=== PATIENT | female | born 1950 | race Caucasian/White ===

== ENCOUNTER 2017-01-02 00:41 | Outpatient (CLI) | payer MEDICARE ==
[2017-01-01 23:46] LABS: BASOPHILS 0.2 % (0.0-2.0); EOSINOPHILS 2.1 % (0-7); HEMATOCRIT 42.9 % (36.0-48.0); HEMOGLOBIN 14.7 g/dL (12-16); IMMATURE GRANULOCYTES 0.5 % (0-5); LYMPHOCYTES 31.2 % (15-50); MCH 30.3 pg (26.0-34.0); MCHC 34.3 g/dL (31.0-37.0); MCV 88.5 fL (80.0-100.0); MEAN PLATELET VOLUME 9.5 fL (7.4-10.4); MONOCYTES 7.4 % (2-11); NEUTROPHILS 58.6 % (40-80); PLATELET COUNT 203 10x3/uL (130-400); RBC 4.85 10x6/uL (4.00-5.40); RDW 12.5 % (11.5-14.5); WBC 5.7 10x3/uL (4.8-10.8)
[2017-01-01 23:59] LABS: ALBUMIN 3.8 g/dL (3.4-5.0); ALKALINE PHOSPHATASE 73 U/L (46-116); ALT (SGPT) 35 U/L (10-68); BILIRUBIN - TOTAL 0.38 mg/dL (0.2-1.3); CALC OSMOLALITY 284 mosm/kg (275-300); CALCIUM 9.9 mg/dL (8.5-10.1); CHLORIDE - SERUM 104 mmol/L (98-107); CREATININE - SERUM 1.1 mg/dL (0.6-1.3); POTASSIUM - SERUM 3.8 mmol/L (3.5-5.1); PROTEIN - SERUM 7.5 g/dL (6.4-8.2); SODIUM 141 mmol/L (136-145); UREA NITROGEN 19 mg/dL (7-18); eGFR NON AFRICAN AMERICAN 53 mL/min (90-120)
[2017-01-02] LABS: GLUCOSE 127 mg/dL (74-106)
--- NOTE | ~2017-01-02 | HEMODYNAMI ---
PATIENT:JAVON HAINES MEDICAL RECORD: [id number] : 50 LOCATION:D. D.[address] [facility]# [id number] ADMISSION DATE: 01/02/17 Generatedon:01/02/201712:49 Patient name: JAVON HAINES Patient #: [id number] SSN: [id number] : 1950 Date of study: 01/02/2017 Page: Of Hemodynamic Procedure Report Patient Data Patient Demographics Procedure consent was obtained First Name: JAVON Gender: Female Last Name: ZAKI : 1950 [facility] Initial: A Age: 66 year(s) Patient #: [id number] Race: SSN: [id number] Additional ID: [id number] Contact details [address]: [address] [place] [address] State: [place] City: [place] Zip code: [address] Past Medical History History of disease Date Diagnosis Comments CAD Valvular heart disease Previous [place] Hypertension Diabetes Allergies Allergen Reaction Date Comments Reported Heparin agents 05/02/2015 Other allergy 05/02/2015 Statins, Lisinopril, Macrobid Other allergy 09/23/2016 Heparin, analogues, Lisinopril, Nitrofurantoin, Statins Admission Admission Data Admission Date: 01/02/2017 Admission Time: 0:41 Admit Source: Other Room #: D.2119 Lab Results Lab Result Date: 01/02/2017 Lab Result Time: 0:00 Biochemistry Name Units Result Min Max Creatinine mg/dl 1.1 --(--*-)-- 0.6 1.3 CBC Name Units Result Min Max Hemoglobin g/dl 14.7 --(-*--)-- 13.5 17.5 Procedure Procedure Types Cath Procedure Diagnostic Procedure [facility] w/Coronaries w/Grafts FFR/IVUS Intra-Coronary IVUS Initial PCI Procedure Coronary Stent Initial Procedure Description Procedure Date Procedure Date: 01/02/2017 Procedure Start Time: 12:15 Procedure End Time: 12:45 Procedure Staff Name Function Michell Frye RT Scrub Chuy Turner RT Dianetic Counselor Shannon Shay RN Nurse Joshua Hooker MD Performing Physician Earl Anguiano RT Monitor Arnaldo Mishra RT Monitor Procedure Data Cath Procedure Fluoroscopy Diagnostic fluoroscopy Total fluoroscopy Time: 6.8 time: 6.8 min min Diagnostic fluoroscopy Total fluoroscopy dose: 699 dose: 699 mGy mGy Contrast Material Contrast Material Type Amount (ml) Isovue 300 135 Entry Location Entry Primary Successful Side Size Upsize Upsize Entry Closure Succes sful Closure Location (Fr) 1 (Fr) 2 (Fr) Remarks Device Remarks Femoral Right 5 Fr 6 Fr Vascade artery Short Closure System Estimated blood loss: 10 ml Diagnostic catheters Device Type Used For End Catheter Placement Cordis 5Fr Pigtail Procedure Catheter (MP) Cordis 5Fr JL 4.0 Procedure Catheter (MP) Cordis 5Fr 3DRC Catheter Procedure (MP) Diagnostic Infinity 5Fr Procedure AR 2 MOD catheter Procedure Medications Medication Administration Route Dosage Oxygen NC 2 l/min Lidocaine 2% added to field 20 0.9% NaCl 1000 ml 0.9% NaCl 250 ml 0.9% NaCl 100 ml/hr Versed I.V. 1 mg Fentanyl I.V. 50 mcg Versed I.V. 1 mg Fentanyl I.V. 50 mcg Angiomax (bolus) I.V. 7.5 ml Plavix P.O. 75 mg Hemodynamics Rest HGB: 14.7 (g/dl) Heart Rate: 85 (bpm) Snapshots Pre Cath Intra NCS Post Cath Vital Signs Time Heart Resp SPO2 etCO2 WL1xogb NIBP (mmHg) Rhythm Pain Sedation Rate (ipm) (%) (mmHg) (mmHg) Status Level (bpm) 12:05:13 71 15 100 0 0 163/73(107) NSR 0 (11) 10(A) , No pain 12:09:36 74 18 99 0 0 144/61(101) NSR 0 (11) 10(A) , No pain 12:13:56 73 19 97 0 0 117/55(83) NSR 0 (11) 10(A) , No pain 12:18:10 72 18 93 0 0 106/48(74) NSR 0 (11) 9(A) , No pain 12:22:17 76 20 98 0 0 107/55(84) NSR 0 (11) 9(A) , No pain 12:26:23 73 19 99 0 0 120/59(89) NSR 0 (11) 9(A) , No pain 12:30:35 70 26 99 0 0 116/57(99) NSR 0 (11) 9(A) , No pain 12:34:45 64 21 100 0 0 107/59(86) NSR 0 (11) 9(A) , No pain 12:38:53 66 17 100 0 0 121/56(83) NSR 0 (11) 9(A) , No pain 12:43:03 63 7 99 0 0 126/60(75) NSR 0 (11) 9(A) , No pain Medications Time Medication Route Dose Verified Delivered Reason Notes Ef fectiveness by by 12:08:58 Oxygen NC 2 Joshua Buffie used for l/min Morro Shay RN procedure 12:09:05 0.9% NaCl on 1000 Joshua Joshua used for on field ml Morro Hooker MD procedure field, pt allergic to heparin 12:09:05 Lidocaine added 20ml Joshua Joshua for local 2% to vial Morro Hooker MD anesthetic field 12:09:34 0.9% NaCl on 250 Joshua Joshua used for on field ml Morro Hooker MD procedure field, pt allergic to heparin 12:09:44 0.9% NaCl on 100 Joshua Buffie Per physician field ml/hr Morro Shay RN 12:15:26 Versed I.V. 1 mg Joshua Buffie for sedation Morro Shay RN 12:15:34 Fentanyl I.V. 50 Joshua Buffie for sedation mcg Morro Shay RN 12:22:57 Versed I.V. 1 mg Joshua Buffie for sedation Morro Shay RN 12:23:01 Fentanyl I.V. 50 Joshua Buffie for sedation mcg Morro Shay RN 12:23:58 Angiomax I.V. 7.5 Joshua Buffie for verified (bolus) ml Morro Shay RN anticoagulation with dr hooker 12:40:40 Plavix P.O. 75 mg Joshua Buffie for Morro Shay RN antiplatelet therapy Procedure Log Time Note 11:45:55 Chuy Turner RT(R) sent for patient. Start room use. 11:52:17 Informed consent obtained and on chart 11:53:05 Admit Source: Other 11:55:02 Procedure type changed to Cath procedure, Diagnostic procedure, LHC, LHC w/Coronaries w/Grafts, FFR/IVUS, Intra-Coronary IVUS Initial, PCI procedure, Coronary Stent Initial 11:56:01 Time tracking: Regular hours 11:56:05 Plan of Care:Hemodynamics will remain stable., Cardiac rhythm will remain stable., Comfort level will be maintained., Respiratory function will remain adequate., Patient/ family verbilizes understanding of procedure., Procedure tolerated without complication., Recovers from procedure without complications.. 11:56:20 Patient received from PCU to CCL 1 Alert and oriented. Tansferred to table in Supine position. 12:04:06 Vital chart was started 12:06:20 ECG and BP/O2 sat monitors applied to patient. 12:06:23 Warm blankets applied, and gonzález hugger turned on for patient comfort. 12:06:27 Correct patient and procedure confirmed by team. 12:06:28 Baseline sample Acquired. 12:06:35 Rhythm: paced 12:06:37 Full Disclosure recording started 12:08:58 Oxygen 2 l/min NC was given by Shannon Shya RN; used for procedure; 12:09:05 0.9% NaCl 1000 ml on field was given by Joshua Hooker MD; used for procedure; on field, pt allergic to heparin 12:09:05 Lidocaine 2% 20ml vial added to field was given by Joshua Hooker MD; for local anesthetic; 12:09:34 0.9% NaCl 250 ml on field was given by Joshua Hooker MD; used for procedure; on field, pt allergic to heparin 12:09:44 0.9% NaCl 100 ml/hr on field was given by Shannon Shay RN; Per physician; 12:11:45 H&P Date Dictated: 01/02/2017 Within 30 days and on chart.. 12:11:46 Pre-op teaching completed and patient verbalized understanding. 12:11:46 Pre-procedure instructions explained to patient. 12:11:49 Family in waiting room. 12:12:33 Patient NPO since Midnight. 12:12:35 Is the patient allergic to Iodine/contrast media? No. 12:12:37 Is patient on blood thinner?Yes 12:12:41 ACC The patient was administered the following blood thiners within the last 24 hours: ACCPlavix 12:12:42 Patient diabetic? Yes. 12:12:43 If diabetic: On Metformin? No 12:12:47 Previous problem with sedation/anesthesia? No ? 12:12:48 Snore? Yes 12:12:50 Sleep apnea? No 12:12:51 Deviated septum? No 12:12:53 Opens mouth fully? Yes 12:12:54 Sticks out tongue? Yes 12:12:55 Airway obstruction? No ? 12:12:57 Dentures? No ? 12:12:59 Pre procedure: right dorsailis pedis pulse 1+ Palpable, but thready & weak; easily obliterated 12:13:01 Patient pain scale 0/10 ?. 12:13:04 IV patent on arrival in right forearm with 0.9% NaCl at [facility]. 12:13:27 Lab Result : Hemoglobin 14.7 g/dl 12:13:27 Lab Result : Creatinine 1.1 mg/dl 12:13:30 Lab results completed and on chart. 12:13:32 Right groin area was prepped with chlora-prep and draped in sterile fashion 12:13:33 Alarms reviewed by R. N. 12:13:41 Sharps counted by scrub and verified by R.N. 12:13:42 Physician arrived 12:13:43 Final Timeout: patient, procedure, and site verified with staff and physician. All members of the team are in agreement. 12:13:43 Final Timeout: patient, procedure, and site verified with staff and physician. All members of the team are in agreement. 12:13:43 --------ALL STOP TIME OUT------ 12:13:46 Right groin site verified by team. 12:13:49 Physical assessment completed. ASA score P 2 - A patient with mild systemic disease as per Joshua Hooker MD. 12:13:53 Sedation plan: IV Moderate Sedation Versed, Fentanyl 12:13:56 Use device set Femoral Dx 12:13:57 Tegaderm 4 x 4 opened to sterile field. 12:13:58 Acist Hand Control opened to sterile field. 12:13:58 Acist Manifold opened to sterile field. 12:14:00 Bag Decanter opened to sterile field. 12:14:00 Acist Syringe opened to sterile field. 12:14:01 Medline Cath Pack opened to sterile field. 12:14:02 St Mt 260cm J .035 wire opened to sterile field. 12:14:02 Terumo 5Fr [place] Sheath opened to sterile field. 12:14:03 Diagnostic Infinity 5Fr Multipack catheter opened to sterile field. 12:15:26 Versed 1 mg I.V. was given by Shannon Shay RN; for sedation; 12:15:34 Fentanyl 50 mcg I.V. was given by Shannon Shay RN; for sedation; 12:15:40 Local anesthetic to right femoral artery with Lidocaine 2% by Joshua Hooker MD.INITIAL ACCESS ONLY 12:15:40 Procedure started. 12:16:00 A Cordis 5Fr Pigtail Catheter (MP) was advanced over the wire and used for Procedure. 12:16:06 A 5 Fr sheath was inserted into the Right Femoral artery 12:16:07 Zero performed for pressure channel P1 12:16:09 Zero performed for pressure channel P1 12:16:34 LV gram done using GRULLON 12:16:36 Injector settings: Ml/sec: 10, Volume: 20, 12:16:43 EF : 55 % 12:16:46 Catheter exchanged over wire. 12:16:50 A Cordis 5Fr JL 4.0 Catheter (MP) was advanced over the wire and used for Procedure. 12:17:34 LCA angiography performed. 12:19:53 Catheter exchanged over wire. 12:20:00 A Cordis 5Fr 3DRC Catheter (MP) was advanced over the wire and used for Procedure. 12:20:08 MONROY to LAD angiography performed. 12:20:11 RCA angiography performed. 12:20:22 [place] BasixCompak Inflation Kit opened to sterile field. 12:20:23 Monroy Whisper J 300cm 0.014 guide wire opened to sterile field. 12:20:43 Merit BasixCompak Inflation Kit opened to sterile field. 12:20:44 Pompeii [facility] IVUS Catheter opened to sterile field. 12:21:04 Terumo 6Fr [place] Sheath opened to sterile field. 12:21:15 Catheter exchanged over wire. 12:21:18 A Diagnostic Infinity 5Fr AR 2 MOD catheter was advanced over the wire and used for Procedure. 12:21:27 Cordis 6FR XBLAD 3.5 guide catheter opened to sterile field. 12:22:15 SVG to RCA angiography performed. 12::57 Versed 1 mg I.V. was given by Shannon Shay RN; for sedation; 12:23:01 Fentanyl 50 mcg I.V. was given by Shannon Shay RN; for sedation; 12:23:17 SVG to Diag angiography performed. 12:23:31 SVG to OM angiography performed. 12:23:58 Angiomax (bolus) 7.5 ml I.V. was given by Shannon Shay RN; for anticoagulation; verified with dr hooker 12:24:15 Catheter removed. 12:24:19 Sheath upsized to a 6 Fr Short. 12:24:29 6 Fr xblad 3.5 guide catheter was inserted over the wire 12:24:32 whisper wire advanced. 12:24:38 Wire advanced across lesion. 12:24:41 IVUS catheter advanced over wire. 12:24:43 IVUS pass to Circ lesion performed. 12:28:37 IVUS catheter removed over wire. 12:30:40 Inflation Number: 1 A Pod Innstronic Resolute 2.5 X 14 stent was prepped and advanced across the Mid CX. The stent was deployed at 13 ABIOLA for 0:00 (min:sec). 12:30:49 Inflation number: 2 The stent balloon was then re-inflated across the Mid CX to 17 ABIOLA for 0:10 (min:sec). 12:31:14 Inflation number: 3 The stent balloon was then re-inflated across the Mid CX to 19 ABIOLA for 0:10 (min:sec). 12:31:40 ACC PCI Site: [facility] has 80% stenosis. 12:31:42 ACC Pre-intervention FAITH Flow is 3. 12:31:47 Stent catheter was removed intact over wire. 12:34:13 Inflation number: 4 A OpenROV Euphora 3.0 x 12 balloon was prepped and advanced across the Mid CX, then inflated to 15 ABIOLA for 0:10 (min:sec). 12:34:39 Balloon removed over the wire. 12:34:40 Wire removed. 12:34:41 Guide catheter removed. 12:35:53 Vascade 6/7 Fr Closure Device opened to sterile field. 12:36:32 Sheath removed intact; hemostasis achieved with Vascade Closure System to the Right Femoral artery. 12:36:37 Procedure ended.(Physican Out) 12:36:45 Fluoroscopy time 06.80 minutes. 12:37:02 Fluoroscopy dose: 699 mGy 12:37:02 Flurop Dose total: 699 12:37:22 Contrast amount:Isovue 300 135ml. 12:40:09 Insertion/operative site no bleeding no hematoma. 12:40:13 Post-op/insertion site Right Femoral artery dressed using a 4 x 4 and Tegaderm. 12:40:16 Post Procedure Pulses reassessed and unchanged 12:40:23 Post-procedure physical assessment completed. ASA score P 2 - A patient with mild systemic disease as per Joshua Hooker MD. 12:40:28 Post procedure rhythm: unchanged. 12:40:31 Procedure and supply charges have been captured, reviewed, submitted and are correct. 12:40:40 Plavix 75 mg P.O. was given by Shannon Shay RN; for antiplatelet therapy; 12:41:55 Estimated blood loss: 10 ml 12:42:00 Post procedure instruction explained to patient.Patient verbalizes understanding. 12:42:01 Patient needs reinforcement of post procedure teaching. 12:45:08 Vital chart was stopped 12:45:09 See physician's report for complete and final results. 12:45:11 Report given to PCU. 12:45:16 Patient transfered to PCU with Bed. 12:45:25 Full Disclosure recording stopped 12:45:25 Procedure ended. 12:45:40 ACC-PCI Only Patient was given prescriptions, or instructed by Joshua Hooker MD to start/continue the following medications upon discharge: Aspirin, Plavix 12:45:43 End room use (Document Last) Intervention Summary Intervention Notes Time ActionType Lesion and Equipment Action# Pressure Duration Attributes Used 12:30:40 Place stent Mid CX Medtronic 1 13 00:00 Resolute 2.5 X 14 stent 12:30:49 Reinflate Mid CX Medtronic 2 17 00:10 stent Resolute balloon 2.5 X 14 stent 12:31:14 Reinflate Mid CX Medtronic 3 19 00:10 stent Resolute balloon 2.5 X 14 stent 12:34:13 Inflate Mid CX NC 4 15 00:10 balloon Euphora 3.0 x 12 balloon Device Usage Item Name Manufacture Quantity Catalog Hospital Part Current Minima l Lot# / Number Charge Number Stock Stock Serial# Code Tegaderm 4 1 [id number] [id number] 015872 5 x 4 Acist Acist 1 25355 374113 827130 735319 5 Manifold Medical Systems Inc Acist Hand Acist 1 16670 872628 846895 881020 5 Control Medical Systems Inc Acist Acist 1 22762 139035 369133 825042 20 Syringe Medical Systems Inc Bag Microtek 1 2002S 338158 91428 268877 5 Decanter Medical Inc. Medline Cardinal 1 [id number] 390213 98673 110150 5 Cath Pack Health Terumo 5Fr Terumo 1 [id number] 233241 977063 170283 [address] [facility] 1 409409 937371 252554 454482 30 260cm J .035 wire Diagnostic Cardinal 1 [id number] 618983 83065 762988 30 Infinity Health 5Fr Multipack catheter Cordis 5Fr Cardinal 1 [id number] 5 Pigtail Health Catheter (MP) Cordis 5Fr Cardinal 1 570505 5 JL 4.0 Health Catheter (MP) Cordis 5Fr Cardinal 1 060845 5 3DRC Health Catheter (MP) Merit Merit 2 [id number] 528357 596491 116861 15 BasixCompak Medical Inflation Kit Monroy Monroy 1 [id number] 792190 845573 281114 5 Whisper J Vascular 300cm 0.014 guide wire Pompeii Pompeii 1 [id number] 692850 008137 880551 8 [facility] IVUS Catheter Terumo 6Fr Terumo 1 PAL819 469495 525562 833705 40 [place] Sheath Diagnostic Cardinal 1 [id number] 433507 161229 274726 20 Infinity Health 5Fr AR 2 MOD catheter Cordis 6FR Cardinal 1 [id number] 704021 431347 331667 10 XBLAD 3.5 Health guide catheter Medtronic Medtronic 1 [id number] 618964 871816 3 [id number] Resolute 2.5 X 14 stent NC Euphora Medtronic 1 [id number] 105284 457748 405005 1 3.0 x 12 balloon Vascade 6/7 Cardiva 1 [id number] 208332 201043 005107 5 Fr Closure Medical, Device Inc. Signature Audit [place] Stage Time Signature Unsigned Intra-Procedure 01/02/2017 Arnaldo Mishra 12:49:07 PM RT(R) (CV) Signatures Monitor : Earl Anguiano RT Signature : Date : Time : Monitor : Arnaldo Mishra RT Signature : Date : Time : [place] [id number] [place] [address]
[2017-01-02 00:09] LABS: CKMB 0.9 U/L (0.0-3.6); CREATINE KINASE 37 UL (21-215)
[2017-01-02 00:13] LABS: TROPONIN-I < 0.017 ng/mL (0.000-0.060)
[~2017-01-02 00:41] MED LIST: AMBIEN10 MG PO; AMBIEN5 MG PO; ASPIRIN EC81 M1 PO; ASPIRIN325 MG PO; CALCIUM CITRATE1 TAB PO; COVARYX TABLET1 TAB PO; ESTRACE 0.5 MG0.5 MG PO; FISH OIL 1,0001 CA1 PO; FLAGYL500 MG PO; IMDUR30 MG PO; ISOSORBIDE MONO30 M1 PO; LOPRESSOR25 MG PO; METOPROLOL TART50 MG PO; NITROSTAT0.4 MG SL; NORCO 5/325 TAB1 TA1 PO; NORVASC2.5 MG PO; PLAVIX75 MG PO; PROBIOTIC1 EAC1 PO; PROTONIX40 MG PO; RANEXA500 MG PO; ZETIA10 MG PO
[2017-01-02 03:54] VITALS: BP 142/63
[2017-01-02] MEDS ORDERED: ISOSORBIDE MONO60 M1 PO (06:08)
[2017-01-02 06:22] VITALS: BP 129/53; BP 88/52
[2017-01-02 09:05] VITALS: BP 150/61
--- NOTE | 2017-01-02 11:50 | NUR ---
PRE-OPS GIVEN. TO KEY ACCOUNT COORDINATOR BY BED.
--- NOTE | 2017-01-02 13:13 | NUR ---
BACK FROM WEB SERVICES MANAGER. VS WNL. RIGHT GROIN STABLE WITHOUT BLEEDING OR HEMATOMA NOTED. WILL MONITOR.
[2017-01-02 16:28] VITALS: BP 113/56
--- NOTE | 2017-01-02 17:04 | NUR ---
BED REST UP. GROIN STABLE.
--- NOTE | 2017-01-02 17:15 | NUR ---
IV AND TELEMETRY DCD. DC PLANS GIVEN. UNDERSTANDING VOICED. ESCORTED TO CAR BY W/C.
--- NOTE | 2017-01-03 08:47 | DS ---
PATIENT:JAVON HAINES :50 MEDICAL RECORD: [id number] DISCHARGE SUMMARY ADMISSION DATE: 01/02/17 DISCHARGE DATE: 01/02/17 DISCHARGE DIAGNOSES: 1. Angina. 2. Coronary artery disease. 3. Percutaneous transluminal coronary angioplasty stent of the left circumflex this admission. HOSPITAL COURSE: Mrs. Haines presents with unstable angina, found to have single vessel disease to the left circumflex, underwent successful PTCA stent of the left circumflex. Had an uneventful postop course with no further angina. Will follow up with [facility] in 1 month. TRANSINT:[id number] Voice Confirmation ID: [id number] DOCUMENT ID: [id number] WOLFGANG DE LEON MD at 0847 CC: [id number] DICTATION DATE: 01/02/17 1239 MEDICAL CHARGE ENTRY SPECIALIST: 01/02/17 2340 DIS IN 01/02/17 [facility] [address] [place] [address]
--- NOTE | 2017-01-03 08:47 | OP ---
PATIENT NAME: JAVON HAINES MEDICAL RECORD: [id number] :50 LOCATION:D.M2 D.2119 ADMISSION DATE:01/02/17 SURGEON: WOLFGANG DE LEON MD DATE OF OPERATION: 01/02/2017 PROCEDURES: 1. PTCA stent, left circumflex. 2. Left heart catheterization. 3. Selective coronary angiography. 4. Left ventriculogram. 5. Vein graft angiography. 6. MONROY angiography. 7. Intravascular ultrasound. INDICATION: Angina and coronary artery disease. PROCEDURE IN DETAIL: After informed consent was obtained and after detailed explanation of risks, benefits as well as alternative therapies, the patient elected to proceed with angiogram and angioplasty. The right femoral area is prepped and draped in normal sterile fashion. Right femoral artery was cannulated via modified Seldinger technique with placement of 6-Yi sheath. All catheters exchanged through this sheath. FINDINGS: Left ventriculogram was performed in the standard 30-degree GRULLON view, reveals preserved cardiac wall motion, ejection fraction 50%. SELECTIVE CORONARY ANGIOGRAPHY: 1. Left main showed no significant angiographic disease. 2. Left anterior descending has a 90% stenosis in the mid distal vessel. 3. MONROY to the LAD distally is widely patent. 4. The left circumflex has a 95% stenosis of the first obtuse marginal. However, the AV groove circumflex has a 77% in-stent restenosis confirmed by intravascular ultrasound. 5. Vein graft to the first obtuse marginal is widely patent. 6. Right coronary artery is totally occluded. 7. Vein graft to the right coronary is widely patent. PTCA STENT OF THE LEFT CIRCUMFLEX: The stent used was a 2.5 x 14 mm Resolute. Result was 0% residual stenosis. OVERALL IMPRESSION: Successful percutaneous transluminal coronary angioplasty stent of the left circumflex going from 77% initial stenosis to 0% residual. TRANSINT:[id number] Voice Confirmation ID: [id number] DOCUMENT ID: [id number] WOLFGANG DE LEON MD at 0847 CC: [id number] DICTATION DATE: 01/02/17 1241 MATERIALS PLANNER: 01/02/17 1315 DIS IN 01/02/17 [place] [address]
== END 2017-01-02 17:17 | disposition home or self-care (01) ==
LOC: OBSVTIME → D.M2 00:41 → D.ER 00:41 → D.OPS 00:41 → EDSTATUS 11:30 → D.M2 17:17 → D.OPS 17:17
PROVIDERS: Emergency Medicine
DX: I25.10 Atherosclerotic heart disease of native coronary artery without angina pectoris (principal)

== ENCOUNTER 2017-01-18 20:17 | Emergency (ER) | payer MEDICARE ==
[~2017-01-18 20:17] MED LIST changes: +ISOSORBIDE MONO60 M1 PO
[2017-01-18 20:54] LABS: BASOPHILS 0.3 % (0.0-2.0); EOSINOPHILS 1.7 % (0-7); HEMATOCRIT 42.4 % (36.0-48.0); HEMOGLOBIN 14.4 g/dL (12-16); IMMATURE GRANULOCYTES 0.8 % (0-5); MCH 30.5 pg (26.0-34.0); MCV 89.8 fL (80.0-100.0); MEAN PLATELET VOLUME 9.6 fL (7.4-10.4); MONOCYTES 6.5 % (2-11); NEUTROPHILS 60.7 % (40-80); PLATELET COUNT 235 10x3/uL (130-400); RBC 4.72 10x6/uL (4.00-5.40); RDW 12.7 % (11.5-14.5); WBC 6.5 10x3/uL (4.8-10.8)
[2017-01-18 21:09] LABS: ALBUMIN 3.7 g/dL (3.4-5.0); ALKALINE PHOSPHATASE 81 U/L (46-116); ALT (SGPT) 34 U/L (10-68); BILIRUBIN - TOTAL 0.33 mg/dL (0.2-1.3); CALC OSMOLALITY 287 mosm/kg (275-300); CALCIUM 9.1 mg/dL (8.5-10.1); CARBON DIOXIDE 25.7 mmol/L (21.0-32.0); CHLORIDE - SERUM 105 mmol/L (98-107); CREATININE - SERUM 1.1 mg/dL (0.6-1.3); POTASSIUM - SERUM 3.7 mmol/L (3.5-5.1); PROTEIN - SERUM 7.1 g/dL (6.4-8.2); SODIUM 141 mmol/L (136-145); UREA NITROGEN 21 mg/dL (7-18); eGFR NON AFRICAN AMERICAN 53 mL/min (90-120)
[2017-01-18 21:16] LABS: GLUCOSE 176 mg/dL (74-106)
[2017-01-18 21:32] LABS: CHOL - HDL RATIO 5.5 ratio (2.3-4.1); CHOLESTEROL, TOTAL 205 mg/dL (0-200); CREATINE KINASE 49 UL (21-215); HDL CHOLESTEROL 37 mg/dL (32-96); LDL CHOLESTEROL 135 mg/dL (0-100); LDL-HDL RATIO 3.6 ratio (1.5-3.5); TRIGLYCERIDE 168 mg/dL (30-200)
[2017-01-18 21:33] LABS: TROPONIN-I < 0.017 ng/mL (0.000-0.060)
== END 2017-01-18 22:55 | disposition home or self-care (01) ==
LOC: D.ER 20:17
PROVIDERS: Emergency Medicine
DX: R07.9 Chest pain, unspecified (principal); I25.810 Atherosclerosis of coronary artery bypass graft(s) without angina pectoris; E11.9 Type 2 diabetes mellitus without complications; Z95.0 Presence of cardiac pacemaker

== ENCOUNTER 2017-01-27 10:41 | Emergency (ER) | payer MEDICARE ==
[2017-01-27 11:09] LABS: BASOPHILS 0.4 % (0.0-2.0); EOSINOPHILS 1.7 % (0-7); HEMATOCRIT 43.1 % (36.0-48.0); HEMOGLOBIN 14.5 g/dL (12-16); IMMATURE GRANULOCYTES 0.4 % (0-5); LYMPHOCYTES 20.3 % (15-50); MCH 30.2 pg (26.0-34.0); MCHC 33.6 g/dL (31.0-37.0); MCV 89.8 fL (80.0-100.0); MEAN PLATELET VOLUME 9.9 fL (7.4-10.4); NEUTROPHILS 69.2 % (40-80); PLATELET COUNT 219 10x3/uL (130-400); RDW 12.7 % (11.5-14.5); WBC 6.9 10x3/uL (4.8-10.8)
[2017-01-27 11:30] LABS: APTT 29.3 SECONDS (22.8-39.4); INR 0.94 (0.85-1.17); PROTIME 12.4 SECONDS (11.6-15.0)
[2017-01-27 11:31] LABS: ALBUMIN 3.9 g/dL (3.4-5.0); ALKALINE PHOSPHATASE 75 U/L (46-116); ALT (SGPT) 40 U/L (10-68); BILIRUBIN - TOTAL 0.72 mg/dL (0.2-1.3); CALC OSMOLALITY 281 mosm/kg (275-300); CALCIUM 9.2 mg/dL (8.5-10.1); CARBON DIOXIDE 28.6 mmol/L (21.0-32.0); CREATININE - SERUM 1.1 mg/dL (0.6-1.3); POTASSIUM - SERUM 4.6 mmol/L (3.5-5.1); PROTEIN - SERUM 7.4 g/dL (6.4-8.2); SODIUM 140 mmol/L (136-145); UREA NITROGEN 21 mg/dL (7-18); eGFR NON AFRICAN AMERICAN 53 mL/min (90-120)
[2017-01-27 11:32] LABS: GLUCOSE 105 mg/dL (74-106)
[2017-01-27 11:54] LABS: CHLORIDE - SERUM 103 mmol/L (98-107); CHOLESTEROL, TOTAL 203 mg/dL (0-200); CKMB 0.7 U/L (0.0-3.6); CREATINE KINASE 74 UL (21-215); TROPONIN-I < 0.017 ng/mL (0.000-0.060)
[2017-01-27 11:55] LABS: CHOL - HDL RATIO 5.6 ratio (2.3-4.1); HDL CHOLESTEROL 36 mg/dL (32-96); LDL CHOLESTEROL 140 mg/dL (0-100); LDL-HDL RATIO 3.9 ratio (1.5-3.5); TRIGLYCERIDE 135 mg/dL (30-200)
== END 2017-01-27 15:10 | disposition home or self-care (01) ==
LOC: D.ER 10:41
PROVIDERS: Emergency Medicine
DX: R07.9 Chest pain, unspecified (principal); E11.9 Type 2 diabetes mellitus without complications; Z95.0 Presence of cardiac pacemaker; I25.810 Atherosclerosis of coronary artery bypass graft(s) without angina pectoris

== ENCOUNTER → 2017-09-01 12:23 | Outpatient (CLI) | payer MEDICARE | END | disposition home or self-care (01) | LOC: D.MAMMO 10:30 | DX: Z12.31 Encounter for screening mammogram for malignant neoplasm of breast (principal) ==

== ENCOUNTER 2017-09-08 20:07 | Emergency (ER) | payer MEDICARE ==
[2017-09-08 21:07] LABS: ALBUMIN 3.7 g/dL (3.4-5.0); ALKALINE PHOSPHATASE 72 U/L (46-116); ALT (SGPT) 31 U/L (10-68); CALC OSMOLALITY 280 mosm/kg (275-300); CALCIUM 9.3 mg/dL (8.5-10.1); CARBON DIOXIDE 25.3 mmol/L (21.0-32.0); CHLORIDE - SERUM 104 mmol/L (98-107); CREATININE - SERUM 1.2 mg/dL (0.6-1.3); GLUCOSE 122 mg/dL (74-106); POTASSIUM - SERUM 3.9 mmol/L (3.5-5.1); PROTEIN - SERUM 7.2 g/dL (6.4-8.2); SODIUM 139 mmol/L (136-145); UREA NITROGEN 19 mg/dL (7-18); eGFR NON AFRICAN AMERICAN 47 mL/min (90-120)
[2017-09-08 21:16] LABS: CHOL - HDL RATIO 4.1 ratio (2.3-4.1); CHOLESTEROL, TOTAL 155 mg/dL (0-200); CKMB 0.5 U/L (0.0-3.6); CREATINE KINASE 44 UL (21-215); HDL CHOLESTEROL 38 mg/dL (32-96); LDL CHOLESTEROL 75 mg/dL (0-100); TRIGLYCERIDE 213 mg/dL (30-200); TROPONIN-I < 0.017 ng/mL (0.000-0.060)
[2017-09-08 21:20] LABS: BASOPHILS 0.1 % (0-2); EOSINOPHILS 1.7 % (0-7); HEMATOCRIT 42.4 % (36.0-48.0); HEMOGLOBIN 14.3 g/dL (12-16); IMMATURE GRANULOCYTES 0.7 % (0-5); LYMPHOCYTES 27.1 % (15-50); MCH 29.7 pg (26.0-34.0); MCHC 33.7 g/dL (31.0-37.0); MEAN PLATELET VOLUME 9.3 fL (7.4-10.4); NEUTROPHILS 62.4 % (40-80); PLATELET COUNT 238 10x3/uL (130-400); RBC 4.82 10x6/uL (4.00-5.40); RDW 12.8 % (11.5-14.5); WBC 7.2 10x3/uL (4.8-10.8)
== END 2017-09-08 22:44 | disposition other institution (70) ==
LOC: D.ER 20:07
PROVIDERS: Emergency Medicine
DX: R07.9 Chest pain, unspecified (principal); I25.10 Atherosclerotic heart disease of native coronary artery without angina pectoris; E11.9 Type 2 diabetes mellitus without complications

== ENCOUNTER → 2017-09-29 17:18 | Outpatient (CLI) | payer MEDICARE | END | disposition home or self-care (01) | LOC: D.US 09-11 15:00 → D.MAMMO 14:30 | DX: R92.8 Other abnormal and inconclusive findings on diagnostic imaging of breast (principal) ==

== ENCOUNTER 2018-12-03 22:59 | Emergency (ER) | payer MEDICARE ==
[~2018-12-03] VITALS: Ht 152.4 cm; Wt 51.4 kg
[2018-12-03 23:10] VITALS: Ht 152.4 cm; Wt 51.4 kg
[2018-12-03 23:18] LABS: BASOPHILS 0.3 % (0-2); EOSINOPHILS 2.8 % (0-7); HEMOGLOBIN 13.8 g/dL (12-16); IMMATURE GRANULOCYTES 0.3 % (0-5); LYMPHOCYTES 35.5 % (15-50); MCH 28.1 pg (26.0-34.0); MCHC 32.9 g/dL (31.0-37.0); MCV 85.5 fL (80.0-100.0); MEAN PLATELET VOLUME 9.3 fL (7.4-10.4); MONOCYTES 8.8 % (2-11); NEUTROPHILS 52.3 % (40-80); PLATELET COUNT 282 10x3/uL (130-400); RBC 4.91 10x6/uL (4.00-5.40); RDW 13.4 % (11.5-14.5)
[2018-12-03 23:32] LABS: ALBUMIN 3.7 g/dL (3.4-5.0); ALKALINE PHOSPHATASE 71 U/L (46-116); ALT (SGPT) 33 U/L (10-68); BILIRUBIN - TOTAL 0.32 mg/dL (0.2-1.3); CALC OSMOLALITY 283 mosm/kg (275-300); CALCIUM 8.9 mg/dL (8.5-10.1); CARBON DIOXIDE 28.7 mmol/L (21.0-32.0); CHLORIDE - SERUM 104 mmol/L (98-107); CREATININE - SERUM 1.1 mg/dL (0.6-1.3); GLUCOSE 132 mg/dL (74-106); POTASSIUM - SERUM 3.9 mmol/L (3.5-5.1); PROTEIN - SERUM 7.5 g/dL (6.4-8.2); SODIUM 140 mmol/L (136-145); UREA NITROGEN 22 mg/dL (7-18); eGFR NON AFRICAN AMERICAN 52 mL/min (90-120)
[2018-12-03 23:34] LABS: APTT 28.3 SECONDS (22.8-39.4); INR 1.01 (0.85-1.17); PROTIME 12.8 SECONDS (11.6-15.0)
[2018-12-03 23:36] VITALS: BP 166/81
[2018-12-03] MEDS ORDERED: PROBIOTIC (23:41)
[2018-12-03] MEDS ORDERED: NORCO 7.5/325 T1 TA1 (23:42)
[2018-12-03] MEDS ORDERED: REPATHA SY140 MG/1 M SC (23:42)
[2018-12-03 23:43] LABS: CREATINE KINASE 76 UL (21-215)
[2018-12-03] MEDS ORDERED: XANAX0.25 MG (23:43)
[2018-12-03] MEDS ORDERED: CELEXA10 MG PO (23:44)
[2018-12-03] MEDS ORDERED: COREG 3.1253.125 MG (23:44)
[2018-12-03 23:45] LABS: TROPONIN-I < 0.017 ng/mL (0.000-0.060)
== END 2018-12-04 00:36 | disposition left against medical advice (07) ==
LOC: D.ER 22:59
PROVIDERS: Family Medicine
DX: R07.9 Chest pain, unspecified (principal); I25.810 Atherosclerosis of coronary artery bypass graft(s) without angina pectoris; E11.9 Type 2 diabetes mellitus without complications; I10 Essential (primary) hypertension

== ENCOUNTER → 2018-12-08 18:00 | Outpatient (CLI) | payer MEDICARE ==
[2018-12-03 23:10] VITALS: BMI 22.1
[~2018-12-08 18:00] MED LIST changes: +CELEXA10 MG PO; +COREG 3.1253.125 MG; +NORCO 7.5/325 T1 TA1; +PROBIOTIC; +REPATHA SY140 MG/1 M SC; +XANAX0.25 MG
== END | disposition home or self-care (01) ==
LOC: D.MAMMO 15:00
DX: Z12.31 Encounter for screening mammogram for malignant neoplasm of breast (principal)

== ENCOUNTER 2020-07-21 15:00 | Outpatient (CLI) | payer MEDICARE ==
[2018-12-03 23:10] VITALS: BMI 22.1
== END 2020-07-21 23:59 | disposition home or self-care (01) ==
LOC: D.MAMMO 15:00
PROVIDERS: ATTEND Family Medicine
DX: Z12.31 Encounter for screening mammogram for malignant neoplasm of breast (principal)